=== PATIENT | male | born 1955 | race Caucasian/White ===

== ENCOUNTER 2017-07-17 18:24 | Inpatient (IN) | payer BC ==
[~2017-07-17] VITALS: Ht 182.9 cm; Wt 204.1 kg
[2017-07-17 17:30] VITALS: BP 127/85
--- NOTE | 2017-07-17 17:30 | NUR ---
ADMITTED TO ARU ACCOMPANIED BY MED RESPONSE. VSS. AWAKE ALERT AND ORIENTED X4. WITH INTACT RIGHT KNEE IMMOBILIZER. ORIENTED TO ROOM AND UNIT. PICTURES TAKEN, INITIAL PHYSICAL ASSESSMENT DONE. ADMISSION PROCESS ENDORSED TO INDUSTRIAL ENGINEERING TECHNOLOGIST.
[2017-07-17 20:00] VITALS: BP 144/100
--- NOTE | 2017-07-17 20:00 | NUR ---
RECEIVED PT'S A/A/O X4,S/P RIGHT TIBIAL ORIF ON 07/15/17;PT DENIED OF PAIN OR ANY DISCOMFORT.PER PT STATED THAT"I LIKE YOUR DINNER THIS [facility],IT'S DELICIOUS AND I'S ABLE TO FINISH".ASSISTED PT FOR PM CARE ON BED AND PUT ON BED REST.KEPT COMFORT.CALL-LIGHT WITHIN REACH.CALLED WHO'S VP DELIVERY DUE TO MEDICATION RECONCILIATION;PER MD STATED TO CHARGE NURSE THAT HE'LL DO IT [place].
[2017-07-17] MEDS ORDERED: ERGO500040 PO (20:06)
[2017-07-17] MEDS ORDERED: ACET-2812 PO (20:06)
[2017-07-17] MEDS ORDERED: MAGN400O6 PO (20:15)
[2017-07-17] MEDS ORDERED: OXYC5CAP18 PO (20:15)
[2017-07-17] MEDS ORDERED: HYDR25TA86 PO (20:15)
[2017-07-17] MEDS ORDERED: ZOLP5TAB2 PO (20:15)
[2017-07-17] MEDS ORDERED: OXYC-128 PO (20:15)
[2017-07-17] MEDS ORDERED: VALS80TA26 PO (20:15)
[2017-07-17] MEDS ORDERED: PANT40TA4 PO (20:15)
[2017-07-17] MEDS ORDERED: MAG355OR18 PO (20:15)
[2017-07-17] MEDS ORDERED: HYDR-3326 PO (20:15)
[2017-07-17] MEDS ORDERED: CEFA1VIA19 IM (20:19)
[2017-07-17] MEDS ORDERED: HYDR1SYR4 IV (20:19)
--- NOTE | 2017-07-18 00:30 | NUR ---
PER MD() RECONCILED HOME-MEDICINE AND HAD A SCHEDULE FOR DRISDOL 50,000 UNITS PO AT THIS TIME( A SCHEDULE FOR EVERY 7 DAYS);EDUCATED TO PT AND HE STATED THAT"I DON'T THINK I'LL TAKE IT AT THIS TIME.I SUPPOSED TO TAKE IT IN THE MORNING,RIGHT?" AND PT SAID"LET'S ME SLEEP",KEPT COMFORT.CALL-LIGHT WITHIN REACH.PT DENIED OF PAIN OR ANY DISCOMFORT AT THIS TIME.
--- NOTE | 2017-07-18 06:00 | NUR ---
PT SLEPT WELL IN THE SHIFT,DENIED OF PAIN AT THIS TIME,STILL ON BED REST.UPDATED THE PLAN OF CARE TO PT,HE VERBALIZED UNDERSTANDING AND COOPERATIVE.NO DISTRESS NOTED IN THE SHIFT.PT REMAINED FREE FROM INJURY NOTED.KEPT CALL-LIGHT WITHIN REACH.PAIN'S CONTROLLED.
--- NOTE | 2017-07-18 07:20 | NUR ---
PT AWAKE IN BED, STATES DID NOT SLEEP VERY WELL. NO DISTRESS NOTED, ALL SAFETY AND COMFORT MEASURES ATTENDED TO, CALL LIGHT IN REACH WILL CONTINUE TO MONITOR
[2017-07-18 08:46] VITALS: BP 137/83
--- NOTE | 2017-07-18 09:30 | NUR ---
PT HAS CPM ORDERED HOWEVER NO CPM IN HOSPITAL, KELP GATHERER AWARE
--- NOTE | 2017-07-18 18:48 | NUR ---
AWARE OF NO CPM MACHINE, NO CHANGES NOTED THROUGHOUT SHIFT
--- NOTE | 2017-07-18 19:45 | NUR ---
PT RECEIVED IN BED, AWAKE. A/OX4. ABLE TO MAKE NEEDS KNOWN. V/S STABLE. IN NO ACUTE DISTRESS. NO C/O PAIN. DRESSING C/D/I. BILATERAL LEGS ELEVATED ON TOP OF PILLOW. NO CPM MACHINE AVAILABLE STILL. MD AWARE. SAFETY MEASURES IMPLEMENTED. CALL LIGHT WITHIN REACH.
[2017-07-18 20:09] VITALS: BP 122/71
--- NOTE | 2017-07-18 22:05 | NUR ---
PT C/O RIGHT LOWER EXTREMITY PAIN 9/10 ON PAIN SCALE. ADMINISTERED PAIN MEDICATION ORDERED. PT ALSO C/O DIFFICULTY SLEEPING AND REQUESTS SLEEP AID. ADMINISTERED RESTORIL ORDERED. WILL CONTINUE TO MONITOR.
--- NOTE | 2017-07-19 06:08 | NUR ---
END OF SHIFT NOTES. PT SLEPT WELL THROUGHOUT SHIFT. PT VERBALIZED RELIEF OF PAIN. DRESSING C/D/I. BILATERAL LEGS ELEVATED. ALL NEEDS ATTENDED. SAFETY MAINTAINED. CALL LIGHT WITHIN REACH.
[2017-07-19 07:15] VITALS: BP 131/77
--- NOTE | 2017-07-19 07:15 | NUR ---
REPORT RECEIVED.PT REMAINS AWAKE,ALERT.DENIES PAIN,DISCOMFORT.MOVES ALL EXTREMITIES.WILL CONTINUE TO MONITOR.
[2017-07-19 20:00] VITALS: BP 111/67
--- NOTE | 2017-07-19 20:00 | NUR ---
RECEIVED PT. AWAKE, ALERT & DISORIENTED X3, DENIES PAIN THIS TIME. R TIBIA DRSG INTACT & DRY W/ IMMOBILIZER. NOT IN ANY DISTRESS.
--- NOTE | 2017-07-19 21:44 | NUR ---
MEDICATED W/ PERCOCET 1 TAB FOR PAIN ON R TIBIA. PT ALSO REQUESTED AMBIEN FOR SLEEP, 5MG AMBIEN GIVEN PO. PT. APPLIED HIS CPAP MACHINE WITHOUT DIFFICULTY.
--- NOTE | 2017-07-20 06:00 | NUR ---
slept well. denies pain.
[2017-07-20 07:05] VITALS: BP 106/72
--- NOTE | 2017-07-20 20:00 | NUR ---
Lying in bed no distress noted,watching tv.
[2017-07-20 20:11] VITALS: BP 122/74
--- NOTE | 2017-07-21 05:04 | NUR ---
Easily awakens.then goes back to sleep. States is glad he has his CPAP WITH him. Voids without difficulty
[2017-07-21 07:37] VITALS: BP 116/71
[2017-07-21 19:57] VITALS: BP 138/68
--- NOTE | 2017-07-21 21:25 | NUR ---
Medicated with Ambien and Percocet per patient request. Medications were scanned and administered but Percocet did not get saved in eMAR.
--- NOTE | 2017-07-21 21:30 | NUR ---
R knee dressing changed per patient's request. Post op site with redness and mild swelling around but no unusual drainage. Alpesh and sutures intact. Knee dressing wrapped with new daisy bandage. Addendum: 07/21/17 at 2249 by DIANA BARRETT RN Amended: Links added.
--- NOTE | 2017-07-21 22:25 | NUR ---
Ambien and Percocet effective.
--- NOTE | 2017-07-22 06:51 | NUR ---
Slept well during the night with CPAP. R knee dressing clean and dry. VS stable.
--- NOTE | 2017-07-22 07:45 | NUR ---
Pt. A/A/O eating breakfast,no s/s of distress,denies pain.
[2017-07-22 08:00] VITALS: BP 120/57
--- NOTE | 2017-07-22 14:34 | NUR ---
Rehab Team Conference 07/22/17
--- NOTE | 2017-07-22 18:05 | NUR ---
Pt.eating dinner,good appetite,watching TV,denies pain @ time.
[2017-07-22 20:00] VITALS: BP 79/54
--- NOTE | 2017-07-22 20:00 | NUR ---
Received pt on bed alert, awake and oriented x4. Able to make needs known. No acute distress noted. No complaints of pain. Currently on CPM machine. Call light within reach. All needs attended.
--- NOTE | 2017-07-23 05:32 | NUR ---
Pt slept well throughout the night. Free of injuries. No acute distress noted. All needs attended
[2017-07-23 08:13] VITALS: BP 115/74
[2017-07-23 20:00] VITALS: BP 134/87
--- NOTE | 2017-07-24 07:35 | NUR ---
122/57 b/p, 96%, 16 resp, 51 pulse, 97.6 F, patient in bed watching tv, complaints of mild pain, denies need for medication at this time. No distress noted.
[2017-07-24 10:19] VITALS: BP 109/70
--- NOTE | 2017-07-24 13:46 | NUR ---
Assistant Professor Sculpture: SW met with pt at bedside to assess needs and provide support. Pt is a 61-year-old male admitted to ARU due to a mechanical fall. Per pt, he was with his son when he accidentally took a wrong step and fell. Pt reports to live alone, however reported to have a strong support system. He did report that most of his family is not local, but are aware of his hospitalization. Pt reported he has autism (high functioning) and presented in a calm and cooperative mood. His goal is to "return home." Pt stated he is hoping to stay in ARU as long as possible in order to obtain his strength back, and so that he may be able to ambulate once again. Per pt, he is coping well and complying with ARU goals. SW engaged in active listening. SW will provide pt with emotional support. SW will provide linkage to case management (Home Health).
[2017-07-24 20:08] VITALS: BP 128/75
--- NOTE | 2017-07-25 05:10 | NUR ---
AAOX4 KANG'S PAIN MEDS GIVEN NEEDED WITH RELIEF NOTED. VOIDING WITHOUT DIFFICULTY.RIGHT KNEE DRESSING CHANGED. HAKEEM INTACT. NOTED RIGHT KNEE WOUND HAS BLISTER ON. VITAL SIGNS STABLE. KEPT COMFORTABLE. SLEPT WELL.
--- NOTE | 2017-07-25 07:45 | NUR ---
Received patient awake, alert x4. With pain over R knee. Surgical dressing intact, no discharges. With blister noted on side.
[2017-07-25 08:00] VITALS: BP 122/81
--- NOTE | 2017-07-25 08:45 | NUR ---
With R knee pain rated as 6/10. PRN medication given.
--- NOTE | 2017-07-25 15:00 | NUR ---
Tolerated CPM up to 60 degrees. With tolerable pain. Patient refused to take pain medications. Dressing changed, blister drained.
[2017-07-25 20:34] VITALS: BP 131/81
--- NOTE | 2017-07-26 05:29 | NUR ---
QUIET NIGHT. AAOX4 DRESSING INTACT TO THE RIGHT KNEE. MAKING NEEDS KNOWN. WILL MONITOR PATIENT. VSS PERCOCET GIVEN FOR PAIN. AMBIEN ALSO GIVEN WELL. CPAP MONITOR ON. VOIDING WELL. KEPT COMFORTABLE. NO ACUTE DISTRESS NOTED.
[2017-07-26 08:15] VITALS: BP 129/66
--- NOTE | 2017-07-26 08:30 | NUR ---
Pt in bed awake, alert, oriented verbally responsive, incision to R knee and tibia D/I no s/s of infection, no c/o pain.
--- NOTE | 2017-07-26 13:30 | NUR ---
Pt up in w/c after receiving therapy, took a shower, dressing to R knee change, no s/s of infection, denies any pain at this time.
--- NOTE | 2017-07-26 18:11 | NUR ---
Pt back to bed no c/o pain, had BM on 07/24/17 and is concern about no having BM yet prune juice was given will f/u in am. pt does not have prns but will f/u with md for orders, denies any pain at this time.
--- NOTE | 2017-07-26 20:00 | NUR ---
Received pt on bed on wheelchair, alert oriented x4. Able to make needs known. No acute distress noted. Breathing even and unlabored with normal respirations. Calm and cooperative to care. No complaints of time at this time. call light within reach. All needs attended. will continue to monitor.
[2017-07-26 20:32] VITALS: BP 112/75
--- NOTE | 2017-07-27 06:04 | NUR ---
Patient slept well. No apparent distress. Denies pain. Call light within reach. All needs attended.
--- NOTE | 2017-07-27 07:45 | NUR ---
Awake, alert, oriented x 4, on moderate high back rest. RLE with good color, sensation, movement. Right knee dressing dry and intact
[2017-07-27 08:36] VITALS: BP 124/79
--- NOTE | 2017-07-27 16:00 | NUR ---
Sitting on the chair, denies pain. Had BM earlier
--- NOTE | 2017-07-27 18:06 | NUR ---
Changed of right knee dressing done.
[2017-07-27 20:39] VITALS: BP 113/68
[2017-07-28 08:00] VITALS: BP 116/67
--- NOTE | 2017-07-28 15:27 | NUR ---
This staff reporter and Nadir Thomas CM, spoke to the patient about discharge planning and he became labile. He was very upset at [facility] because it took a couple of days for [facility] to get authorization for [facility] and now he is not ready to go back home because he has more than 17 steps. Asked him if he has any family members that can help out and he started yelling. Provided him options for SNF, [facility] or [facility]. Informed him that SNF placement needs authorization from [facility] and [facility] or [facility] will be private pay. He yelled, "Might as well discharge me with a gun!" This staff reporter tried to redirect his anger but he was very sarcastics and livid. Informed him that this staff reporter will call the insurance company to see if they can approve half-way care and that pacified him. He also gave the go signal to fax his information to SNFs. Left a message to Chaim Mello CM, [ ] to try and get authorization for half-way care. [facility] will follow-up. Addendum: 07/28/17 at 1720 by RANI REICH CMG Faxed the patient's information to the following SNFs: 1) [facility] - ; 2) [facility] - ; 3) [facility] - ; 4) [facility] - ; 16:56 Spoke to Antoinette from [employer] [facility] and informed her about the situation. She confirmed that the patient's CM is [facility] [ ; ]. She also stated that the patient has a Pending Authorization [Ref# [id number]] starting from 07/17/17 for 15 days. Faxed the patient's facesheet, H&P, labs, med list, PT/OT Assessements & Notes to [facility]. Updated ILENE Hayward from [facility], on the situation. CM/SW will follow-up.
[2017-07-28 20:03] VITALS: BP 132/83
--- NOTE | 2017-07-29 02:02 | NUR ---
pt aao4; sitting in wheelchair; agitated; vss; nad. pt upset regarding discharge. comfort measures provided; doctor spoke with patient; discharge on hold. pain 5/10 to right knee Percocet prn administered with relief. patient asleep in bed this time. bed in low position. call light and possessions within patient reach. will continue with plan of care,
[2017-07-29 08:34] VITALS: BP 117/72
--- NOTE | 2017-07-29 13:32 | NUR ---
Interdisciplinary Team Summary
--- NOTE | 2017-07-29 19:30 | NUR ---
RECEIVED PATIENT FROM DAY SHIFT NURSE. REPORT GIVEN AT BEDSIDE. PATIENT ON WHEELCHAIR AT BEDSIDE. PATIENT IN NO PAIN OR DISTRESS. CALL LIGHT PLACED WITH IN REACH OF PATIENT. WILL CONTINUE TO MONITOR THROUGH OUT SHIFT.
[2017-07-29 20:58] VITALS: BP 100/80
--- NOTE | 2017-07-30 07:00 | NUR ---
PATIENT LYING IN BED WITH NO SIGNS OF DISTRESS OR PAIN. ALL NEEDS ATTENDED & MEDS ADMINISTERED PRESCRIBED. SHIFT REPORT GIVEN AT BEDSIDE TO DAY SHIFT NURSE.
[2017-07-30 07:24] LABS: BASOPHILS # (AUTO) 0.1 K/uL (0.0-8.0); BASOPHILS % (AUTO) 0.8 % (0.0-2.0); EOSINOPHILS # (AUTO) 0.3 K/uL (0.0-0.7); EOSINOPHILS % (AUTO) 4.4 % (0.0-7.0); HEMATOCRIT 43.7 % (40-50); HEMOGLOBIN 14.9 G/DL (14.0-18.0); LYMPHOCYTES # (AUTO) 2.9 K/UL (0.8-4.8); LYMPHOCYTES % (AUTO) 36.8 % (20.5-51.5); MEAN CORPUSCULAR HEMOGLOBIN 30.6 UUG (27.0-31.0); MEAN CORPUSCULAR HGB CONC 34 g/dL (32.0-37.0); MEAN CORPUSCULAR VOLUME 89.5 FL (82.0-92.0); MONOCYTES # (AUTO) 0.7 K/UL (0.1-1.30); MONOCYTES % (AUTO) 9.4 % (0.0-11.0); NEUTROPHILS # (AUTO) 3.8 K/UL (1.8-8.9); NEUTROPHILS % (AUTO) 48.6 % (38.5-71.5); PLATELET COUNT (AUTO) 393 K/UL (150-450); RED BLOOD CELL COUNT(AUTO) 4.88 MIL/UL (4.7-6.1); WHITE BLOOD COUNT (AUTO) 7.8 K/UL (4.0-11.2)
[2017-07-30 07:54] LABS: BILIRUBIN,TOTAL 0.6 mg/dL (0.2-1.0); CREATININE 1.1 mg/dL (0.6-1.3); MAGNESIUM 2.1 mg/dL (1.8-2.4); PHOSPHOROUS 4.1 mg/dL (2.5-4.9); POTASSIUM 4.6 mmol/L (3.5-5.1); TOTAL PROTEIN, SERUM 6.6 g/dL (6.4-8.2)
[2017-07-30 08:00] VITALS: BP 124/79
--- NOTE | 2017-07-30 08:48 | NUR ---
RECEIVED SHIFT REPORT FROM AUTO GARAGE MECHANIC NURSE, PATIENT IN BED LOOKING AT CELL PHONE, STATES," I SLEPT REALLY WELL LAST NIGHT". NO COMPLAINTS OF PAIN, NO SIGNS OF DISTRESS, CALL LIGHT IN REACH, BED LOCK AND IN LOWERED POSITION.
--- NOTE | 2017-07-30 09:30 | NUR ---
DRESSING CHANGED TO RIGHT KNEE SURGICAL SITE, NO OPEN AREAS NOTED.
--- NOTE | 2017-07-30 09:38 | NUR ---
PATIENT VOICES COMPLAINTS RELATED TO HAVING HAKEEM REMOVED FROM RIGHT KNEE SURGICAL SITE, MESSAGE LEFT FOR DOCTOR JUANITA, REQUESTING PERMISSION TO REMOVED THIS PATIENTS HAKEEM. PERCOCET 5 MG (2 TABS) GIVEN FOR PAIN 05/25.
--- NOTE | 2017-07-30 16:00 | NUR ---
Called Dr. [facility] for staple removal orders. Left message to nurses station. Still no call back from clinic
--- NOTE | 2017-07-30 18:21 | NUR ---
PATIENT TOLERATED PT WELL, DENIES PAIN AT THIS TIME, NO NEW SKIN ISSUES, NO SIGNS OF DISTRESS, DRESSING CHANGE AT 1820, NOTED SITTING IN WHEELCHAIR, AWAKE.
[2017-07-30 20:00] VITALS: BP 132/90
--- NOTE | 2017-07-30 22:15 | NUR ---
Received pt in room up in wheelchair on phone. Awake, alert and oriented. Verbally responsive and able to make needs known. No acute distress noted. No complaints of pain or discomfort at this time. Safety precautions and fall prevention maintained. Will continue to monitor. Addendum: 07/30/17 at 2 by Igor Velez RN Received at 2004
--- NOTE | 2017-07-31 06:52 | NUR ---
Pt slept well throughout the night. Tolerated medications well. No complaints of pain or discomfort. No acute distress noted. All safety measures and fall precautions maintained. Call light within reach. Bed locked, in lowest position and side rails up x 2.
--- NOTE | 2017-07-31 07:53 | NUR ---
Patient noted laying in bed awake, no distress noted, no complaints of pain at this time, states his ex will be picking him up around 5 pm to take him to [facility]. Pictures of right knee taken at this time. Call light in reach, bed locked and in lowest position
[2017-07-31 07:59] VITALS: BP 128/84
[2017-07-31 08:00] VITALS: BP 128/84
--- NOTE | 2017-07-31 15:00 | NUR ---
ORDER RECEIVED TO REMOVE HAKEEM FROM RIGHT KNEE VIA DOCTOR RANDY, 17 HAKEEM REMOVED, NO COMPLAINTS OF PAIN OR DISCOMFORT NOTED FROM PATIENT, NO OPEN AREAS NOTED, NO SIGNS OF INFECTION, SUTURES NOTED AND NOT REMOVED, AREA REDRESSED WITH SURGICAL DRESSING
--- NOTE | 2017-07-31 17:20 | NUR ---
123/64, 63 PULSE, 98.0 ORAL TEMP, 18 RESP, PATIENT DISCHARGED AT 1720, STABLE, EXITED VIA WHEELCHAIR, LEFT IN PRIVATE VEHICLE WITH EX , DISCHARGE INSTRUCTIONS GIVEN, EXIT CARE GIVEN, REPORT GIVEN TO NURSE AT [facility].
== END 2017-07-31 17:20 | DRG 560 ==
PROVIDERS: ADMIT Physical Medicine & Rehabilitation Pain Medicine; ATTEND Physical Medicine & Rehabilitation Pain Medicine
DX: S82.141D Displaced bicondylar fracture of right tibia, subsequent encounter for closed fracture with routine healing (principal); Z68.44 Body mass index [BMI] 60.0-69.9, adult; I10 Essential (primary) hypertension; F84.0 Autistic disorder; Z96.643 Presence of artificial hip joint, bilateral; E66.01 Morbid (severe) obesity due to excess calories; E78.5 Hyperlipidemia, unspecified; J45.20 Mild intermittent asthma, uncomplicated; K21.9 Gastro-esophageal reflux disease without esophagitis; K59.00 Constipation, unspecified; M19.90 Unspecified osteoarthritis, unspecified site; W18.30XD Fall on same level, unspecified, subsequent encounter; R73.03 Prediabetes
CPT/HCPCS: 36415; 83735; 84100; 85025; 92526; 92610; 97110; 97112; 97116; 97530; 97535; Q0163